=== PATIENT | female | born 1980 | race Caucasian/White ===

== ENCOUNTER 2020-12-18 23:55 | Emergency (ER) | payer MEDICAID ==
[~2020-12-18] VITALS: Ht 170.2 cm; Wt 113.4 kg
[2020-12-18 23:55] VITALS: BP_SYST 194
[~2020-12-18 23:55] MED LIST: ACET-73 PO; CAT.1 PO; CLON0.5T4 PO; LANS15CA14 PO; VENL75CA PO
[2020-12-19] MEDS ORDERED: LABETALOL 100 MG/ 20ML VIAL IVP ONE (00:30)
[2020-12-19] MEDS ORDERED: NACL 0.9% 1,000 ML IV ONE (00:30)
[2020-12-19] MEDS ORDERED: LORazepam 1 MG TABLET PO ONE (00:30)
[2020-12-19 00:34] LABS: EOSINOPHILS # (AUTO) 0.2 K/uL (0.0-0.4)
[2020-12-19 00:40] LABS: BASOPHILS # (AUTO) 0.1 K/uL (0.0-0.2); BASOPHILS % (AUTO) 0.7 % (0.0-2.0); EOSINOPHILS % (AUTO) 1.9 % (0.0-4.0); HEMATOCRIT 46.6 % (36-48); LYMPHOCYTES % (AUTO) 34.9 % (20.5-51.5); MEAN CORPUSCULAR HEMOGLOBIN 33 pg (27-31); MEAN CORPUSCULAR HGB CONC 34 % (32-36); MEAN CORPUSCULAR VOLUME 95 fL (79.0-98.0); MONOCYTES # (AUTO) 0.7 K/uL (0.0-1.0); NEUTROPHILS # (AUTO) 4.7 K/uL (1.8-7.7); NEUTROPHILS % (AUTO) 54.5 % (40.0-70.0); PLATELET COUNT (AUTO) 212 K/uL (130-430); RED BLOOD CELL COUNT(AUTO) 4.91 MIL/uL (4.2-6.2); RED CELL DISTRIBUTION WIDTH 13.1 % (9.0-15.0); WHITE BLOOD COUNT (AUTO) 8.6 K/uL (4.8-10.8)
[2020-12-19 00:44] LABS: CALCIUM 9.3 mg/dL (8.4-11.0); CREATININE 0.83 mg/dL (0.55-1.30); POTASSIUM 3.9 mmol/L (3.5-5.1)
[2020-12-19 00:49] LABS: ALBUMIN 3.9 g/dL (3.4-4.8); TOTAL BILIRUBIN 0.3 mg/dL (0.0-1.0)
[2020-12-19] MEDS ORDERED: ESOM40CA53 PO (00:53)
[2020-12-19] MEDS ORDERED: ALPR0.5T PO (00:53)
[2020-12-19] MEDS ORDERED: AMLO5TAB92 PO (00:53)
[2020-12-19] MEDS ORDERED: VENL150T PO (00:53)
[2020-12-19 01:09] LABS: BILIRUBIN,URINE NEGATIVE (NEGATIVE); BLOOD, URINE NEGATIVE (NEGATIVE); CLARITY/URINE CLEAR (CLEAR); COLOR,URINE YELLOW (YELLOW); GLUCOSE,URINE NEGATIVE (NEGATIVE); KETONES,URINE NEGATIVE (NEGATIVE); LEUKOCYTE ESTERASE ,URINE NEGATIVE (NEGATIVE); NITRITE, URINE NEGATIVE (NEGATIVE); PROTEIN URINE 1+ (NEGATIVE); UROBILINOGEN,URINE 0.2 (0.2-1.0)
[2020-12-19 01:12] LABS: BACTERIA,URINE FEW /HPF (None Seen); RBC,URINE 0-3 /HPF (0-3); WBC,URINE 0-3 /HPF (0-3)
[2020-12-19 01:21] LABS: BARBITURATE, URINE NEGATIVE (NEG <=200); BENZODIAZEPINE, URINE POSITIVE (NEG <=150); CANNABINOID, URINE NEGATIVE (NEG <=50); COCAINE, URINE NEGATIVE (NEG <=150); METHAMPHETAMINES SCREEN,URINE NEGATIVE (NEG <=500); OPIATE, URINE NEGATIVE (NEG <=100); PHENCYCLIDINE SCREEN,URINE NEGATIVE (NEG <=25); UR TRICYCLIC ANTIDEPRESSANTS NEGATIVE (NEG <=300); URINE AMPHETAMINE NEGATIVE (NEG <=500); URINE METHADONE NEGATIVE (NEG <=200); URINE OXYCODONE SCREEN NEGATIVE (NEG <=100); URINE PROPOXYPHENE SCREEN NEGATIVE (NEG <=300)
[2020-12-19] MEDS ORDERED: LISINOPRIL 10 MG TABLET (PRINIVIL) PO ONE (02:30)
[2020-12-19] MEDS ORDERED: HYDROCHLOROTHIAZIDE 12.5 MG CAPSULE (HCTZ) PO ONE (02:30)
[2020-12-19] MEDS ORDERED: LISINOPRIL 10 MG TABLET (PRINIVIL) ONE (02:34)
[2020-12-19] MEDS ORDERED: HYDR12.55 PO (02:35)
[2020-12-19] MEDS ORDERED: LISI-209 PO (02:35)
[2020-12-19] MEDS ORDERED: HYDROCHLOROTHIAZIDE 12.5 MG CAPSULE (HCTZ) ONE (02:35)
[2020-12-19 02:50] VITALS: BP_SYST 158
== END 2020-12-19 02:50 | disposition home or self-care (01) ==
LOC: SED 23:55
DX: I10 Essential (primary) hypertension (principal); F41.9 Anxiety disorder, unspecified; Z79.899 Other long term (current) drug therapy
CPT/HCPCS: 36415; 71045; 80053; 80307; 81000; 81025; 85025; 93005; 96361; 96374; 99285; J3490; J7030

== ENCOUNTER → 2022-02-13 | Emergency (ER) | payer MEDICAID ==
[~2022-02-13] VITALS: Ht 170.2 cm; Wt 124.7 kg
[~2022-02-13] MED LIST changes: -ACET-73 PO; +ALPR0.5T PO; +AMLO5TAB92 PO; -CAT.1 PO; -CLON0.5T4 PO; +ESOM40CA53 PO; +HYDR12.55 PO; -LANS15CA14 PO; +LISI-209 PO; +VENL150T PO; -VENL75CA PO
[2022-02-13 06:01] VITALS: BP_SYST 172
--- NOTE | 2022-02-13 06:22 | NUR ---
COVID AND FLU SWABS SENT TO LAB
== END | disposition home or self-care (01) ==
LOC: SED 05:27
DX: U07.1 COVID-19 (principal); M79.10 Myalgia, unspecified site; M54.9 Dorsalgia, unspecified; I10 Essential (primary) hypertension; Z79.899 Other long term (current) drug therapy
CPT/HCPCS: 36415; 71045; 99284

== ENCOUNTER 2022-06-29 11:02 | Emergency (ER) | payer MEDICAID ==
[~2022-06-29] VITALS: Ht 170.2 cm; Wt 108.9 kg
[2022-06-29 11:02] VITALS: BP_SYST 134
--- NOTE | 2022-06-29 11:05 | NUR ---
BROUGHT BACK TO BED #4 AND TRIAGED. REPORT GIVEN TO AVRIL
--- NOTE | 2022-06-29 11:10 | NUR ---
RECEIVED PT FROM [facility]. PT BIBS FOR C/O C/P 12/21. PT IS CRYING AND STATING SHE JUST TOLD HER SHE WANTED TO LEAVE HIM. PT IS AAOX4. ON R/A. DENIES N/V/D/C. SKIN WARM, INTACT. SIDERAILS UP X2.
--- NOTE | 2022-06-29 11:15 | NUR ---
DR. ABDULLAHI AT BEDSIDE TO ASSESS PT.
[2022-06-29] MEDS ORDERED: LORazepam 1 MG TABLET PO ONE (11:45)
[2022-06-29 11:58] LABS: BASOPHILS # (AUTO) 0.2 K/uL (0.0-0.2); BASOPHILS % (AUTO) 2.3 % (0.0-2.0); EOSINOPHILS # (AUTO) 0.2 K/uL (0.0-0.4); EOSINOPHILS % (AUTO) 2.6 % (0.0-4.0); HEMATOCRIT 44.1 % (36-48); HEMOGLOBIN 15.4 g/dL (12.0-16.0); LYMPHOCYTES # (AUTO) 1.9 K/uL (1.0-5.5); LYMPHOCYTES % (AUTO) 22.2 % (20.5-51.5); MEAN CORPUSCULAR HEMOGLOBIN 31 pg (27-31); MEAN CORPUSCULAR HGB CONC 35 % (32-36); MEAN CORPUSCULAR VOLUME 89 fL (79.0-98.0); MONOCYTES # (AUTO) 0.7 K/uL (0.0-1.0); MONOCYTES % (AUTO) 7.6 % (1.7-9.3); NEUTROPHILS # (AUTO) 5.7 K/uL (1.8-7.7); NEUTROPHILS % (AUTO) 65.3 % (40.0-70.0); PLATELET COUNT (AUTO) 244 K/uL (130-430); RED BLOOD CELL COUNT(AUTO) 4.94 MIL/uL (4.2-6.2); RED CELL DISTRIBUTION WIDTH 13.1 % (9.0-15.0); WHITE BLOOD COUNT (AUTO) 8.7 K/uL (4.8-10.8)
--- NOTE | 2022-06-29 12:02 | NUR ---
PT REFUSES SCHEDULED ANXIETY MEDICATION. STATES SHE DOES NOT NEED IT AND IS NOT SEEKING IT.
[2022-06-29 12:16] LABS: ANION GAP 9 (5-15); CALCIUM 10.2 mg/dL (8.4-11.0); CHLORIDE 103 mmol/L (98-107); CREATININE 0.86 mg/dL (0.55-1.30); GLUCOSE 93 mg/dL (70-99); UREA NITROGEN, BLOOD 16 mg/dL (8-21)
[2022-06-29 12:20] LABS: GFR AFRICAN AMERICAN 92 mL/min (>90)
[2022-06-29 12:28] LABS: ALANINE AMINOTRANSFERASE 39 U/L (12-78); ALBUMIN 4.3 g/dL (3.4-4.8); TOTAL BILIRUBIN 0.4 mg/dL (0.0-1.0)
[2022-06-29 12:49] LABS: ASPARTATE AMINOTRANSFERASE 20 U/L (10-37)
[2022-06-29 13:13] VITALS: BP_SYST 129
== END 2022-06-29 13:17 | disposition home or self-care (01) ==
LOC: SED 11:02
DX: R07.9 Chest pain, unspecified (principal); R51.9 Headache, unspecified; F41.0 Panic disorder [episodic paroxysmal anxiety]; I10 Essential (primary) hypertension; Z79.899 Other long term (current) drug therapy
CPT/HCPCS: 36415; 80053; 84484; 85025; 93005; 99284